=== PATIENT | female | born 1945 | race Caucasian/White ===

== ENCOUNTER → 2018-04-26 13:50 | Outpatient (CLI) | payer OTHER, SELFPAY ==
[2018-04-26 14:40] LABS: Add Manual Diff / Slide Review NO; Basophils Percent Auto 0.4 % (0-2); Eosinophils Percent Auto 2.5 % (2-4); Hematocrit 35.7 % (36-46); Hemoglobin 11.8 g/dL (12.0-16.0); Lymphocytes Percent Auto 24.5 % (25-40); Mean Corpuscular HGB Conc 33.1 % (30-36); Mean Corpuscular Hemoglobin 25.8 PG (26-34); Mean Corpuscular Volume 77.7 fL (80-100); Neutrophils Absolute Auto 4400 /uL (3000-5900); Neutrophils Percent Auto 65.6 % (50-75); Platelet Count 133 X10^3/uL (150-400); Red Cell Distribution Width 14.7 % (11.6-14.8); White Blood Cell Count 6.6 X10^3/uL (4.5-11.0)
[2018-04-26 14:54] LABS: BUN Creatinine Ratio 23.3 (6-22); Blood Urea Nitrogen 21 mg/dL (7-17); Calcium 9.1 mg/dL (8.4-10.2); Carbon Dioxide 30 mmol/L (22-32); Chloride 99 mmol/L (98-107); Estimated Glomerular Filt Rate > 60.0 mL/min (>60); Glucose 106 mg/dL (80-110); HEMOLYSIS < 15 (0-50); Potassium 4.4 mmol/L (3.4-5.1); Sodium 140 mmol/L (137-145)
== END ==
PROVIDERS: Family Provider Family Medicine; PCP Family Medicine; Visit Provider Orthopaedic Surgery
DX: Z01.818 Encounter for other preprocedural examination (principal)
CPT/HCPCS: 36415; 80048; 85025; 93005

== ENCOUNTER 2018-05-10 10:58 | Inpatient (IN) | payer OTHER, SELFPAY ==
[2018-04-28 09:53] VITALS: BMI 30.2
[2018-05-10] VITALS (14 sets, daily range): BP systolic 121–157; BP diastolic 54–76; PULSE 57–96; RESP 10–19; TEMP 36.2–37; O2SAT 91–100; BMI 30.2
--- NOTE | 2018-05-10 06:00 | DI.RAD.S_ITS ---
PROCEDURE: XR KNEE RT 1TO2V COMPARISON: None. INDICATIONS: post operative right knee FINDINGS: Normal postoperative alignment immediately after right total knee arthroplasty. IMPRESSION: Normal alignment after right total knee arthroplasty. Dictated by: Richard Fraser M.D. on 05/10/2018 at 14:37 Approved by: Richard Fraser M.D. on 05/10/2018 at 14:37
[2018-05-10] MEDS: PREGABALIN 75 MG CAPSULE PO (11:19)
[2018-05-10] MEDS: CELECOXIB 200 MG CAPSULE PO (11:19)
[2018-05-10] MEDS: ACETAMINOPHEN 325 MG TABLET 975 MG PO ×3 (11:19→20:25)
--- NOTE | 2018-05-10 11:42 | PM.PREOP ---
Pre-operative Note Interval Note Pre-op Check: Yes History & Physical Reviewed by Physician and Yes Exam Performed Changes: No
--- NOTE | 2018-05-10 11:44 | P.OP_ITS ---
Operative Date/Time/Diagnoses Date of procedure: 05/10/18 Time of procedure: 13:40 Pre-op diagnosis: Right knee osteoarthritis Post-op diagnosis: same Procedure & Clinicians Procedure: Right total knee replacement Same procedure as scheduled: Yes Indications: The patient has had progressively worsening right knee pain with radiographic changes consistent with arthritis. Non-operative management has failed and the patient has requested total knee replacement. The risks, benefits and alternatives to surgery were discussed with the patient prior to proceeding. Risks discussed included, but were not limited to, failure to relieve pain, stiffness, infection, nerve damage, deep venous thrombosis, pulmonary embolism, stroke, coma, heart attack, permanent paralysis and , as well as the potential need for eventual revision of the prosthetic. Surgeon: Lazarus Glover Evaluator Transfer Students: Nora Williamson Click Yes if Unassisted: No Anesthesia Type: Spinal, Peripheral nerve block and Local Operative Notes Findings: Severe medial and significant patellofemoral osteoarthritis. Closure Type: primary Specimen(s): none sent Implants & Drains: Implants used in this procedure were manufactured by the [id number] and included the BCS II Journey total knee replacement with a size 4 right cobalt chromium femur, size 4 right non porous tibial base plate, a 9 mm cross-linked polyethylene BCS II tibial insert, and a 35 mm oval Lexi II patellar component. Applied: implant(s) Estimated Blood Loss (mL): 25 Blood products transfused: none Tourniquet time (min): 53 Procedure in detail: The patient was seen in the pre-operative area, where the patient identified the right knee as the operative site and this was marked with my initials. The patient received pre-operative antibiotics, and was taken to the operating room and placed on the operative table in the supine position. After satisfactory anesthesia, a nail tech out was performed. The right leg was encircled with a tourniquet about the proximal thigh, and the leg was prepared from the toes to the tourniquet with ChloroPrep in the usual fashion and draped through sterile drapes. The leg was elevated and exsanguinated with Eschmark bandage and the tourniquet inflated to 250 mmHg pressure. The knee was approached through an approximately 18 cm incision centered over the patella and carried into the knee through a medial parapatellar arthrotomy. The anterior osteophytes and soft tissues were removed. The rotational landmarks of Martha's line and the transepicondylar axis were marked on the femur with electrocautery, and intramedullary guide holes for the femur and tibia were created. The distal femoral cut was made in 6 degrees of valgus using the intramedullary guide at the +2 cut setting due to a pre-existing flexion contracture. The proximal tibial cut was then made using the intramedullary guide, taking 9 mm of bone off the less involved side. The extension gap was checked and the rotation of the femoral component confirmed with the gap balancing system. The anterior, posterior and chamfer cuts were then made. The posterior osteophytes and soft tissues were then removed. The posterior capsule was injected with part of a mixture of 50 ml 0.25% Marcaine mixed with 20 ml Exparel and 4 mg of morphine for post-operative pain control. The remainder of this mixture was injected into the capsule and subcutaneous tissues during cement curing. The tibia was prepared with the rotation set by an extra medullary guide. Trial tibial and femoral components were then placed and the intercondylar notch cut through the femoral trial. Range of motion was 0-135 degrees, with good stability throughout the range. The patella was then cut to accommodate the patellar prosthetic. There was no need for a lateral release. The trials were then removed, and the femoral hole plugged with a bone plug. The bone was prepared with pulsatile lavage, and dried with a sponge. Cement was applied and the final prosthetics placed. Excess cement was removed during and after cement curing. After confirming there was no extruded cement posteriorly, the final tibial insert was placed. The knee was copiously irrigated and the tourniquet deflated. Hemostasis was obtained. The capsule was closed with interrupted # 2 polyester suture. The subcutaneous layer was closed with 3-0 Vicryl, and the skin with a running 3-0 V-Lock suture and SteriStrips. An Aquacel Ag dressing was applied and the patient was taken to recovery having tolerated the procedure well. Complications: none Condition: stable Disposition: PACU Plan for aftercare: The patient will be maintained on a standard total knee replacement protocol with weight bearing as tolerated. The patient will receive aspirin and sequential compression devices for DVT prophylaxis. The patient will be discharged home when safe for the home environment.
[2018-05-10] MEDS: MIDAZOLAM 2 MG/2 ML VIAL IV (11:54)
[2018-05-10] MEDS: fentaNYL 100 MCG/2 ML INJ 50 MCG IV (11:54)
[2018-05-10] MEDS: LACTATED RINGERS 1,000 ML 42 ML IV ×2 (12:02→12:55)
--- NOTE | 2018-05-10 12:04 | SUR.PREOP ---
Block start time [1155] . Monitoring initiated and maintained throughout procedure. Oxygen and medications given per anesthesiologist instructions. Patient remained stable throughout procedure, no adverse reactions noted. Block end time [1200 ].
[2018-05-10] MEDS: CEFAZOLIN 2 GM/100 ML FROZ.PIGGY IV ×2 (12:05→19:25)
--- NOTE | 2018-05-10 12:41 | SUR.OPER ---
Supine on padded OR bed. Pillow under head, arms secured on padded armboards <90 degree abduction. Safety belt across torso. Non-operative leg secured with tape over blanket over lower leg. Operative leg secured in DeMayo/Tonny positioner. Foam padded brace at thigh of operative leg.
[2018-05-10] MEDS: BUPIVACAINE LIPOSOME 266 MG/20 ML VIAL INJ (12:47)
[2018-05-10] MEDS: BUPIVACAINE 0.25% W/ EPI VIAL 60 ML INJ (12:48)
[2018-05-10] MEDS: MORPHINE 4 MG/ML INJ IV (12:54)
[2018-05-10] MEDS: ONDANSETRON 4 MG/2 ML INJ IV (14:20)
[2018-05-10] MEDS: OXYCODONE IR 5 MG TABLET PO ×2 (16:19→19:31)
[2018-05-10] MEDS: LACTATED RINGERS 1,000 ML 125 ML IV (16:21)
[2018-05-10] MEDS: METOCLOPRAMIDE HCL 10 MG TABLET PO ×2 (16:21→20:26)
--- NOTE | 2018-05-10 16:54 | PT.IPTN ---
Current Diagnoses Bilateral primary osteoarthritis of knee (05/10/18) Surgery Performed Operation Date: 05/10/18 13:00 Actual Procedures p Total Knee Arthroplasty(Right) - Lazarus Glover MD Physical Therapy Treatment Note M3 PT-IP Subjective Start: 05/10/18 16:51 Freq: NEEDED Status: Active Protocol: Document 05/10/18 16:51 EA (Rec: 05/10/18 16:54 EA [id number]) Subjective Physical Therapy Visit Type Type Patient Refusal Notes Patient approached @ 1650 and reports sensory impaired to 80 %. Quick assessment reveals no proprioception with lacked of light, pin prick sensation. Pt agreeable to participate with PT evaluation tomorrow.
--- NOTE | 2018-05-10 17:43 | PC.NURSE ---
patient resting comfortably in bed with call light in reach, oriented to its use, verbalizes understanding not to get oob by herself. BA active. Family at bedside. Restasis eye drops tagged and sent to pharmacy per protocol. Patient now on RA, sat is 99%. Pain is 4/10 before being medicated with pain meds, is now 2/10 during pain reassessment. Patient denies nausea, is sitting up in bed eating dinner. BLE are still mostly numb and patient reports some tingling to both calves/feet. Pulses are equal and cap refill is less than 2 seconds. SCD's on, IVF infusing as ordered. PT evaled and stated that they could not get her oob yet because her sensation hasn't fully come back yet. Will encourage patient to get oob soon to attempt to void. Will continue to monitor.
[2018-05-10] MEDS: ASPIRIN EC 81 MG TABLET PO (20:26)
[2018-05-10] MEDS: DOCUSATE 100 MG CAPSULE PO (20:26)
[2018-05-10] MEDS: MELOXICAM 7.5 MG TABLET 15 MG PO (20:26)
[2018-05-10] MEDS: RESTASIS 1 EACH EYE-BOTH (20:26)
[2018-05-10] MEDS: METOPROLOL ER 25 MG TABLET PO (20:26)
[2018-05-10] MEDS: OXYCODONE IR 10 MG TABLET PO ×2 (20:27→22:30)
[2018-05-10] MEDS: OXYCODONE ER 10 MG TAB 20 MG PO (20:27)
[2018-05-10] MEDS: SIMVASTATIN 40 MG TABLET PO (20:28)
[2018-05-11] VITALS (9 sets, daily range): BP systolic 138–159; BP diastolic 57–73; PULSE 64–72; RESP 16–66; TEMP 36.3–37.1; O2SAT 96–99
[2018-05-11] MEDS: OXYCODONE IR 10 MG TABLET PO ×5 (01:33→21:20)
[2018-05-11] MEDS: LACTATED RINGERS 1,000 ML 125 ML IV ×2 (01:38→07:46)
[2018-05-11] MEDS: METOCLOPRAMIDE HCL 10 MG TABLET PO ×4 (04:36→21:12)
[2018-05-11] MEDS: CEFAZOLIN 2 GM/100 ML FROZ.PIGGY IV (04:36)
[2018-05-11] MEDS: ONDANSETRON 4 MG/2 ML INJ IV ×2 (05:17→08:48)
[2018-05-11 05:54] LABS: Hematocrit 30.9 % (36-46); Hemoglobin 10.2 g/dL (12.0-16.0)
[2018-05-11] MEDS: LEVOTHYROXINE 88 MCG TABLET PO (06:30)
[2018-05-11] MEDS: ASPIRIN EC 81 MG TABLET PO ×2 (07:46→22:15)
[2018-05-11] MEDS: ACETAMINOPHEN 325 MG TABLET 975 MG PO ×3 (07:46→21:12)
[2018-05-11] MEDS: OXYCODONE ER 10 MG TAB 20 MG PO ×2 (07:47→21:00)
[2018-05-11] MEDS: RESTASIS 1 EACH EYE-BOTH ×2 (07:47→21:11)
--- NOTE | 2018-05-11 07:50 | PM.PNPO.1 ---
Subjective Date Patient Seen: 05/11/18 Time Patient Seen: 07:51 Interval history: The patient reports she has smoked had some issues with pain control overnight but generally she is feeling better this morning. Exam Vital Signs (past 8 hours): - 05/11/18 04:00 Temperature 98.1 F Pulse Rate 66 Respiratory Rate 16 Blood Pressure 147/57 H Pulse Oximetry 99 Oxygen Delivery Method Nasal Cannula Oxygen Flow Rate 2 Narrative Exam Narrative: Right lower extremity wound is dressed with no drainage on the bandage. Light touch and motion are intact in the right lower extremity. Calf is soft. Objective Labs Result Diagrams: 05/11/18 05:34 Labs: Laboratory Results - last 24 hr 05/11/18 05:34 Hgb 10.2 L Hct 30.9 L Radiographs reveal an appropriately positioned total knee prosthetic on the right. Assessment & Plan Post-op Postoperative Procedures Operation Date: 05/10/18 13:00 Actual Procedures Side Surgeon p Total Knee Arthroplasty Right Lazarus Glover MD Postoperative day: 1 Postoperative status: doing well, marginal pain control and anemia Postoperative status narrative: The patient is doing well postoperative day 1 after total knee replacement on the right. She has had mild pain control issues. She also has an anticipated mild post hemorrhagic anemia. Postoperative plan: routine post-op care and ambulate Time Spent With Patient less than 15 minutes Quality VTE Deep Vein Thrombosis/Pulmonary Embolism Present on Admission: No
[2018-05-11] MEDS: DOCUSATE 100 MG CAPSULE PO ×2 (08:44→21:12)
--- NOTE | 2018-05-11 09:03 | PT.IIE ---
Addendum entered and electronically signed by Imelda Redman, PT 05/11/18 13:26: I certify I directly supervised and guided this session. R Lynette Redman DPT Original Note: Current Diagnoses Bilateral primary osteoarthritis of knee (05/10/18) Surgery Performed Operation Date: 05/10/18 13:00 Actual Procedures p Total Knee Arthroplasty(Right) - Lazarus Glover MD Surgical History (Last Updated 04/29/18 @ 13:16 by Judi Humphrey RN) H/O aortic valve replacement (Acute) History of ankle surgery (Acute) Hx of appendectomy (Acute) Hx of arthroscopy of right knee (Acute) Hx of dilation and curettage (Acute) Hx of microdiscectomy (Acute) S/P CABG x 1 (Acute) Medical History (Last Updated 04/28/18 @ 10:34 by Judi Humphrey RN) Anxiety (Acute) Arthritis (Acute) Chronic back pain (Acute) Chronic neck pain (Acute) Cystocele with rectocele (Acute) Depression (Acute) Diabetes (Acute) Dry eyes (Acute) Eczema (Acute) Fecal incontinence (Acute) H/O: hysterectomy (Acute) HTN (hypertension) (Acute) Heartburn (Acute) Hyperlipidemia (Acute) Hypothyroidism (Acute) Pneumonia (Acute) Precancerous lesion (Acute) RLS (restless legs syndrome) (Acute) Sleep apnea (Acute) Supraventricular tachycardia (Acute) Physical Therapy Inpatient Evaluation/Re-Eval M1 PT/OT-IP Prior Functional Status Start: 05/10/18 16:51 Freq: NEEDED Status: Active Protocol: Document 05/11/18 09:03 (Rec: 05/11/18 11:46 [email or web address]) Medical Review Prior Functional Status Medical History Reviewed Yes Communication No deficits noted. Mobility and Gait Pt states she was previously independent with all mobilities using no AD, including driving. Social History Household Members spouse Living Arrangements House Number of Floors (Floors) One Floor Number of Stairs To Enter/Railing? 2 steps. No rail, but there is a sturdy hose-mash filter cloth changer that she can grab onto R ascending. Home Environment Standard Height Toilet Walk in Shower Home Equipment Front Wheel Walker Straight Cane Crutches Raised Toilet Seat w/Armrests Shower Seat without Backrest Hand Held Shower Employment Status Unemployed Additional Social History Comment Pt's will be avaliable 19/01 to assist pt at d/c. Pt between jobs, planning to return to work. M2 PT-IP Current Condition Start: 05/10/18 16:51 Freq: NEEDED Status: Active Protocol: Document 05/11/18 09:03 (Rec: 05/11/18 11:46 [email or web address]) Physical Therapy Current Condition Current Condition Evaluation Date 05/11/18 Treatment Diagnosis R TKA; difficulty walking Onset Date 05/10/2018 Weight Bearing Status Weight Bearing Status Weight Bear as Tolerated M3 PT-IP Subjective Start: 05/10/18 16:51 Freq: NEEDED Status: Active Protocol: Document 05/11/18 09:03 (Rec: 05/11/18 11:46 [email or web address]) Subjective Physical Therapy Visit Type Type Initial Evaluation Visit Start Time 09:03 Visit Stop Time 09:57 Total Visit Minutes 54 Number of CREATIVE DESIGNER Visits 0 Physical Therapy Visit Comments Patient Comments Pt agreeable to mobilize with PT. Patient Goals Pt planning to d/c home with . Therapy Pain Assessment Pain When Pain Assessed During Mobility Pain Present Pain Present Pain Reported Location Right Knee Scale Used 6/10 resting. Decreases to 4/ 10 after ambulation Pain Behaviors Facial Grimacing Guarding Pain Management Techniques Apply Cold Distraction Elevation Modification of Treatment Re-positioning Timing of Activity with Medications M4 PT-IP Mobility and Gait Start: 05/10/18 16:51 Freq: NEEDED Status: Active Protocol: Document 05/11/18 09:03 (Rec: 05/11/18 11:46 [email or web address]) PT-Bed Mobility Assessment Supine to Sit Supine to Sit Standby Assistance Scooting Scooting to Edge of Bed Standby Assistance PT-Transfer Assessment Sit to and From Stand Sit to and from Stand Contact Guard Assistance Use of Upper Extremities Equipment Transfer Assistive Device Gait Belt Front Wheeled Walker Orthotic/Prosthetic Devices or Brace: No Transfers Transfer Destination Bed Chair Transfer Technique Ambulating between surfaces. Comments Mobility Comments Resting/HOB elevated VSS WNL. Supine > sit is SBA. Sit <> stand from high bed is CGA using BUEs and mod cues to avoid pushing from walker. Pt c/o of some lightheadedness with standing, VSS remain WNL, symptoms decrease and pt agrees to ambulate. After ambulation (see below) sit <> stand from toilet is CGA and pt uses R grab bar. Gait Assessment Gait Gait Assistance Required: Contact Guard Assist Distance (Feet) 100 Able to Maintain Weight Bearing Status Yes During Gait Assistive Devices Assistive Device Gait Belt Front Wheeled Walker Orthotic/Prosthetic Devices or Brace: No Gait Deviations General Gait Pattern Decreased Stride Length Decreased Feet Clearance Flexed Trunk Factors Limiting Gait Function Factors Limiting Gait Function Decreased Activity Tolerance Decreased Strength Limited Range of Motion Pain Poor Balance Poor Safety Awareness Comments Gait Comments Pt ambulates 100 + 15+ 15 ft using fww CGA. Demonstrates forward posture she corrects with min cues. Pt relies heavily on fww to offload R LE . Pt tends avoid flexing R knee during gait, but is able to partially correct this with mod cues. PT-Balance Assessment Sitting Balance and Reactions Static Sitting Balance Ability Good Dynamic Sitting Balance Ability Good Standing Balance and Reactions Static Standing Balance Ability Good Dynamic Standing Balance Ability Fair Device Used fww M5 PT-IP Objective Assessments Start: 05/10/18 16:51 Freq: NEEDED Status: Active Protocol: Document 05/11/18 09:03 (Rec: 05/11/18 11:46 [email or web address]) Orientation Orientation/Cognition Level of Alertness Alert Orientation Name Age Birthday Month Date Year Day of Week Place Situation Language Function Ability No Deficits Noted Safety Awareness Decreased Safety Awareness Gross Range of Motion Lower Extremity ROM Assessment Right Impaired Impairments R knee flexion ~40deg; extension +5 deg. LLE WNL. Strength Lower Extremity Strength Assessment Right Impaired Hip 5 Knee 3 Ankle 5 Comments Strength Comments LLE WNL M6 PT-IP Treatment Start: 05/10/18 16:51 Freq: NEEDED Status: Active Protocol: Document 05/11/18 09:03 (Rec: 05/11/18 11:46 [email or web address]) Physical Therapy Treatment Exercises Exercises Ankle Pumps Quad Sets Heel Slides Straight Leg Raises Short Arc Quads Passive Knee Extension Hang Seated Knee Flexion/Extension Education Education Provided Precautions Weight Bearing Status Post-Op Packet Safety M7 PT-IP Assessment and Plan Start: 05/10/18 16:51 Freq: NEEDED Status: Active Protocol: Document 05/11/18 09:03 (Rec: 05/11/18 11:46 [email or web address]) PT Summary Assessment and Plan Potential Rehabilitation Potential Good Status of Condition at Evaluation Stable Summary Impairments Pain ROM Strength Balance Bed Mobility Transfers Gait Activity Tolerance Progress Towards Goals Progressing Toward Goals Assessment Summary Pt s/p R TKA with difficulty walking. She was able to walk 100 ft with fww CGA. Stair climbing still needs to be completed. Recommend d/c to home with 24/7 assist and f/u OP PT once pt completes stair climbing with PT and is medically stable. Goals Bed Mobility Goal Independent Transfer Goal Standby Assistance Gait Goal Standby Assistance Gait Distance 200 Other Goals up/down 2 stairs with R rail ( pt has a hose-mash filter cloth changer to grab onto R ascending) CGA. Days to Meet Goals 3 Frequency of Treatment Frequency Of Treatment Twice a Day Treatment Plan Physical Therapy Treatment Plan Bed Mobility Training Transfer Training Gait Training Therapeutic Exercise Balance Retraining Post Op Education Discharge Planning Hot or Cold Pack Neuromuscular Re-ed Coordination Retraining Manual Therapy Other Recommendations and Next Treatment Stair climbing. Ambulation. Focus Recommendations To Nursing Amount of Assist Needed 1 Person Assist Discharge Recommendations PT Discharge Recommendations Home with 24/7 Assist Outpatient PT
--- NOTE | 2018-05-11 10:46 | PC.NURSE ---
Addendum entered by Zeina Enriquez R.N. 05/11/18 13:18: Good PO intake despite intermittent nausea. No emesis. Voiding WNL. IV saline locked per standing post op orders. Original Note: Addendum entered by Zeina Enriquez R.N. 05/11/18 13:08: Reports good pain relief after getting the IV Dilaudid (down to 3/10 from 7). Nausea improved also. Original Note: Addendum entered by Zeina Enriquez R.N. 05/11/18 12:02: C/O nausea increasing again. Will see if she wants to try Vistaril. Reports pain in R knee consistently 01/05. Plan to give IV Dilaudid that she has ordered for breakthrough pain. Original Note: Shift summary: Alert and oriented X3. Doing well with transfers and walking, 1-person assist with FWW. Guero wrap and dressing to R knee C/D/I. Circulation/sensation WNL all extremities, denies paresthesias. Medicated with 10 mg Oxycodone and schedule Oxycontin for 710 R knee pain. Fresh ice packs applied to R knee. Has mild nausea, no emesis. Was able to eat all of her breakfast. She reports that intermittent nausea is something she deals with at home also. Medicated with PRN Zofran and scheduled Reglan with reports of nausea reduction. Lungs CTA, HRR. Encouraged ongoing coughing, deep breathing and IS use. 1+ pitting edema RLE. BT+, flatus+, had a BM this morning. IVF per orders, site in R hand WNL. Back in bed after working with PT. Call light in reach, bed alarm on.
[2018-05-11] MEDS: hydrOXYzine pamoate 25 MG CAPSULE PO ×2 (12:07→19:27)
[2018-05-11] MEDS: HYDROMORPHONE 0.5 MG INJ IV ×6 (12:08→22:17)
[2018-05-11] MEDS: SODIUM CHLORIDE 0.9% FLUSH 10 ML IV ×3 (14:01→22:18)
--- NOTE | 2018-05-11 14:51 | PT.IPTN ---
Current Diagnoses Bilateral primary osteoarthritis of knee (05/10/18) Surgery Performed Operation Date: 05/10/18 13:00 Actual Procedures p Total Knee Arthroplasty(Right) - Lazarus Glover MD Physical Therapy Treatment Note M2 PT-IP Current Condition Start: 05/10/18 16:51 Freq: NEEDED Status: Active Protocol: Document 05/11/18 09:03 (Rec: 05/11/18 11:46 [email or web address]) Physical Therapy Current Condition Current Condition Evaluation Date 05/11/18 Treatment Diagnosis R TKA; difficulty walking Onset Date 05/10/2018 Weight Bearing Status Weight Bearing Status Weight Bear as Tolerated M3 PT-IP Subjective Start: 05/10/18 16:51 Freq: NEEDED Status: Active Protocol: Document 05/11/18 13:35 CLB (Rec: 05/11/18 14:51 CLB [email or web address]) Subjective Physical Therapy Visit Type Type Treatment Note Visit Start Time 13:35 Visit Stop Time 14:05 Total Visit Minutes 30 Number of WOOL WASHER Visits 1 Physical Therapy Visit Comments Patient Comments Pt agreeable to do therapy. Patient Goals Pt planning to d/c home with . Therapy Pain Assessment Pain When Pain Assessed During Mobility Pain Present Pain Present Pain Reported Location Right Knee Intensity 9 Scale Used Numeric (1 - 10) Pain Management Techniques Apply Cold Distraction Elevation Modification of Treatment Re-positioning Timing of Activity with Medications M4 PT-IP Mobility and Gait Start: 05/10/18 16:51 Freq: NEEDED Status: Active Protocol: Document 05/11/18 13:35 CLB (Rec: 05/11/18 14:51 CLB [id number]) PT-Bed Mobility Assessment Supine to Sit Supine to Sit Standby Assistance Head of Bed Elevated Sit to Supine Sit to Supine Minimal Assistance Head of Bed Elevated Scooting Scooting to Edge of Bed Standby Assistance Scooting Up and Down in Bed Standby Assistance PT-Transfer Assessment Sit to and From Stand Sit to and from Stand Contact Guard Assistance Use of Upper Extremities Equipment Transfer Assistive Device Gait Belt Front Wheeled Walker Orthotic/Prosthetic Devices or Brace: No Transfers Transfer Destination Bed Chair Toilet Comments Mobility Comments Pt able to use GC to self assist RLE OOB. Gait Assessment Gait Gait Assistance Required: Contact Guard Assist Distance (Feet) 40 Assistive Devices Assistive Device Gait Belt Front Wheeled Walker Orthotic/Prosthetic Devices or Brace: No Gait Deviations General Gait Pattern Decreased Stride Length Decreased Feet Clearance Flexed Trunk Factors Limiting Gait Function Factors Limiting Gait Function Decreased Activity Tolerance Decreased Strength Limited Range of Motion Pain Poor Balance Poor Safety Awareness Comments Gait Comments Pt ambulated to BR ~10ft then ambulated in room ~30 before pt felt pn had increased and she needed to rest. Pt prefers to wear shoes with ambulation due to L ankle discomfort. M5 PT-IP Objective Assessments Start: 05/10/18 16:51 Freq: NEEDED Status: Active Protocol: Document 05/11/18 09:03 (Rec: 05/11/18 11:46 [email or web address]) Orientation Orientation/Cognition Level of Alertness Alert Orientation Name Age Birthday Month Date Year Day of Week Place Situation Language Function Ability No Deficits Noted Safety Awareness Decreased Safety Awareness Gross Range of Motion Lower Extremity ROM Assessment Right Impaired Impairments R knee flexion ~40deg; extension +5 deg. LLE WNL. Strength Lower Extremity Strength Assessment Right Impaired Hip 5 Knee 3 Ankle 5 Comments Strength Comments LLE WNL M6 PT-IP Treatment Start: 05/10/18 16:51 Freq: NEEDED Status: Active Protocol: Document 05/11/18 13:35 CLB (Rec: 05/11/18 14:51 CLB [id number]) Physical Therapy Treatment Exercises Exercises Ankle Pumps Quad Sets Heel Slides Straight Leg Raises Short Arc Quads Education Education Provided Precautions Weight Bearing Status Post-Op Packet Safety Other Treatments Other Treatment Performed Demonstrated to pt how to use GB to self assist with RLE. M7 PT-IP Assessment and Plan Start: 05/10/18 16:51 Freq: NEEDED Status: Active Protocol: Document 05/11/18 13:35 CLB (Rec: 05/11/18 14:51 CLB [id number]) PT Summary Assessment and Plan Potential Rehabilitation Potential Good Status of Condition at Evaluation Stable Summary Impairments Pain ROM Strength Balance Bed Mobility Transfers Gait Activity Tolerance Progress Towards Goals Progressing Toward Goals Assessment Summary Pt able to perform all ther ex . Pt is SBA OOB with use of GB to assist RLE but due to increase of pain after ambultion pt required Min A for RLE sit-supine. Pt will need to performs stair climbing with before d /c ( will be back in AM typically around 8:00) Goals Bed Mobility Goal Independent Transfer Goal Standby Assistance Gait Distance 200 Other Goals up/down 2 stairs with R rail ( pt has a hose-bladder changer to grab onto R ascending) CGA. Days to Meet Goals 3 Treatment Plan Physical Therapy Treatment Plan Bed Mobility Training Transfer Training Gait Training Therapeutic Exercise Balance Retraining Post Op Education Discharge Planning Hot or Cold Pack Neuromuscular Re-ed Coordination Retraining Manual Therapy Other Recommendations and Next Treatment Stair climbing. Ambulation. Focus Recommendations To Nursing Amount of Assist Needed 1 Person Assist Discharge Recommendations PT Discharge Recommendations Home with 19/01 Assist Outpatient PT
[2018-05-11] MEDS: OXYCODONE IR 5 MG TABLET PO (17:02)
[2018-05-11] MEDS: MELOXICAM 7.5 MG TABLET 15 MG PO (21:12)
[2018-05-11] MEDS: METOPROLOL ER 25 MG TABLET PO (21:12)
[2018-05-11] MEDS: SIMVASTATIN 40 MG TABLET PO (21:12)
[2018-05-11] MEDS: PANTOPRAZOLE 40 MG TABLET PO (21:14)
--- NOTE | 2018-05-11 23:58 | PC.NURSE ---
Nida reports right knee still really hurting--it is a sharp pain. We have kept ice packs on knee off & on tonight. Pt taking 2 oxycodone routinely every 3-4 hours but requesting IV Dilaudid for breakthru pain approx every 1.5-2 hours. At 2100 she asked for my pain meds. Discussed how PO oxycodone & oxycontin were both due, she stated she wanted the Dilaudid too--that's the only thing that takes my pain away. She then rated her pain at about a 5. When giving her medications, she fell asleep during conversation 2-3 times. RA oxygen 92-95% and BP 153/73. HR 69 bpm and regular. She awoke to loud voice, we talked about pain medication & I told her how I was afraid to over-sedate her, and discussed her falling asleep during conversation. I then asked if she wanted me to hold the IV Dilaudid or give it she said you are giving me mixed messages! First you tell me you will give it to me and then you won't. Everyone wants me to stay on top of my pain but when I ask for pain medication you make me feel like I am taking too much. I talked with her tonight about her sedation, the oxycodone & oxycontin I had just given to her. I told her I did not want to withhold her medication and I asked her to make the decision whether she wanted to take the IV Dilaudid. She said well no--just don't give it then I instructed her to call me if she had increased pain & that I would immediately come in room to give her the IV Dilaudid for breakthru pain, as it is ordered. We discussed how DC plan will not include IV medications and how our goal is to manage pain with oral meds. Within 20 minutes, Dawn golf shoe spike assembler notified me that patient had called, that patient was found was crying and told her that she needed her Dilaudid and did not know why the nurse was not giving it to her. I went into room immediately, she rated pain 9/10, I then administered IV Dilaudid 0.5 mg. Pt instructed to call for any needs or concerns. She asked is it OK that I get up by myself to use the bathroom tonight? Fall precautions reviewed with her, she was instructed again to call and have staff present before she attempts to get OOB. Full patient report given to Ivette HEATH RN.
[2018-05-12] MEDS: OXYCODONE IR 5 MG TABLET PO (03:13)
[2018-05-12 03:30] VITALS: BP 177/72; PULSE 61; RESP 18; TEMP 36.8; O2SAT 97
[2018-05-12] MEDS: OXYCODONE IR 10 MG TABLET PO ×2 (06:05→08:56)
[2018-05-12 07:40] VITALS: BP 160/63; PULSE 70; RESP 16; TEMP 37; O2SAT 97
--- NOTE | 2018-05-12 07:44 | P.DS_ITS ---
History of Present Illness Date Patient Seen: 05/12/18 Time Patient Seen: 07:39 Chief complaint: total knee arthroplasty right [id number] Narrative: Patient has a history of right knee osteoarthritis. She failed conservative measures elected to proceed with right total knee arthroplasty with Dr. Glover at [facility]. Discharge Providers Date of admission: 05/10/18 10:58 Primary care physician: Timbo Blair MD Consults: 05/10/18 14:52 Consult to Discharge Planning Routine Comment: Consult to Physical Therapy Evaluate & Treat Comment: Physician Instructions: postop TKA protocol Consult to Respiratory Therapy Evaluate & Treat Comment: Physician Instructions: Evaluate and treat Discharge provider: Marina Beavers PA-C Discharge Date: 05/12/18 Summary Discharge Diagnosis: Right knee osteoarthritis Mild postoperative anemia Hospital Course: Patient was admitted and taken operating room she had a right total knee replacement with Dr. Glover. She recovered well as transfer to the floor for further care. Postop day 1 she was having issues with pain control. Postop day 2 patient was ambulating well, pain was under control, eating and drinking well, and urinating without difficulty. She was ready to be discharged home. She will be discharged home with prescriptions for oxycodone 5 mg and Vistaril 25 mg. Status at Discharge Cognitive/behavioral status at discharge: Alert and orient x3 Functional status at discharge: uses cane/walker Overall status at discharge: patient is progressing back to baseline Time Spent with Patient Less than 30 minutes Exam Vital Signs (past 8 hours): - 05/11/18 23:50 05/12/18 03:30 Temperature 98.8 F 98.3 F Pulse Rate 69 61 Respiratory Rate 18 18 Blood Pressure 143/67 H 177/72 H Pulse Oximetry 96 97 Oxygen Delivery Method Room Air Oxygen Flow Rate 0 Narrative Exam Narrative: Patient in bed. Appears comfortable. Alert orient x3. Right knee Aquacel dressing clean dry and intact. Moderate swelling in right knee. Bilateral calves soft and nontender. 5/5 right ankle strength. Neurovascular status intact. Objective Labs Result Diagrams: 05/11/18 05:34 Discharge Plan Discharge Plan Patient Disposition: Home Discharge comment: Start physical therapy next week. Take aspirin 81 mg twice a day x6 weeks for DVT prophylaxis. Discharge Med Rec/Prescriptions Prescriptions: New acetaminophen 325 mg Tablet 975 mg PO TID Qty: 0 RF: 0 aspirin 81 mg Tablet,Delayed Release (Dr/Ec) 81 mg PO BID Qty: 0 RF: 0 hydroxyzine pamoate 25 mg Capsule 25 mg PO Q6HR PRN (Reason: Nausea) Qty: 42 RF: 0 oxycodone 10 mg Tablet 10 mg PO Q3HR PRN (Reason: Pain, Severe (7-10)) Qty: 60 RF: 0 Continue simvastatin 40 mg Tablet 40 mg PO BEDTIME RF: 0 pantoprazole [Protonix] 40 mg Tablet,Delayed Release (Dr/Ec) 40 mg PO DAILY PRN (Reason: gi upset) RF: 0 metoprolol succinate 25 mg Tablet Extended Release 24 Hr 25 mg PO BEDTIME RF: 0 cyclosporine [Restasis] 0.05 % Dropperette 1 drp EYE-BOTH BID RF: 0 levothyroxine 88 mcg Capsule 88 mcg PO DAILY RF: 0 aspirin 81 mg Tablet,Delayed Release (Dr/Ec) 81 mg PO DAILY RF: 0 metoclopramide HCl [Reglan] 10 mg Tablet 10 mg PO Q6H RF: 0 Changed meloxicam 15 mg Tablet 15 mg PO DAILY Qty: 0 RF: 0 Discontinued oxycodone-acetaminophen 10-325 mg Tablet 1 - 2 tab PO QID PRN (Reason: pain) RF: 0 Follow up/Referrals: Lzaarus Glover MD [Physician] - (Follow-up as scheduled date and time. Contact office with any issues or concerns.) Provider Discharge Instructions Diet: Diet as Tolerated Cold/Heat Therapy: Apply ice as needed for swelling and inflammation. Skin/Wound/Dressing Care Report to your healthcare provider any signs of infection, such as:: chills, fever, increased pain and unusual drainage Dressing: Keep dressing clean dry and intact. May shower. Visit Report/Discharge Packet Instructions: DI for Knee Replacement Discharge Data Primary Care Provider: Timbo Blair Attending Provider: Lazarus Glover Admit Date/Time: 05/10/18 10:58 Quality VTE Deep Vein Thrombosis/Pulmonary Embolism Present on Admission: No
--- NOTE | 2018-05-12 08:35 | PC.NURSE ---
pt angry about lack of pain medication. pt states, I'm a chronic pain patient and medication has been cut down. My knee is in excoriating pain. pt will take oxycodone 10mg at 0900. right knee swollen. drsg intact. This RN explained Tylenol dose lowered per discharge orders but oxycodone dose increased. pt seems 'ok' with this.
[2018-05-12] MEDS: LEVOTHYROXINE 88 MCG TABLET PO (08:55)
[2018-05-12] MEDS: ACETAMINOPHEN 325 MG TABLET 975 MG PO (08:56)
[2018-05-12] MEDS: METOCLOPRAMIDE HCL 10 MG TABLET PO (08:57)
[2018-05-12] MEDS: ASPIRIN EC 81 MG TABLET PO (08:57)
[2018-05-12] MEDS: DOCUSATE 100 MG CAPSULE PO (08:58)
--- NOTE | 2018-05-12 10:39 | PT.IPTN ---
Current Diagnoses Bilateral primary osteoarthritis of knee (05/10/18) Surgery Performed Operation Date: 05/10/18 13:00 Actual Procedures p Total Knee Arthroplasty(Right) - Lazarus Glover MD Physical Therapy Treatment Note M2 PT-IP Current Condition Start: 05/10/18 16:51 Freq: NEEDED Status: Active Protocol: Document 05/11/18 09:03 (Rec: 05/11/18 11:46 [email or web address]) Physical Therapy Current Condition Current Condition Evaluation Date 05/11/18 Treatment Diagnosis R TKA; difficulty walking Onset Date 05/10/2018 Weight Bearing Status Weight Bearing Status Weight Bear as Tolerated M3 PT-IP Subjective Start: 05/10/18 16:51 Freq: NEEDED Status: Active Protocol: Document 05/12/18 10:28 SA (Rec: 05/12/18 10:39 SA [id number]) Subjective Physical Therapy Visit Type Type Treatment Note Visit Start Time 08:55 Visit Stop Time 09:25 Total Visit Minutes 30 Number of VP ACCOUNT DIRECTOR Visits 2 Physical Therapy Visit Comments Patient Comments Pt sitting up at EOB and agreeable to PT this AM. Patient Goals Planning to d/c home with later today. Therapy Pain Assessment Pain When Pain Assessed During Mobility Pain Present Pain Present Pain Reported Location Right Knee Intensity 5 Scale Used Carson-Hopson (Faces) Pain Management Techniques Apply Cold Re-positioning Timing of Activity with Medications M4 PT-IP Mobility and Gait Start: 05/10/18 16:51 Freq: NEEDED Status: Active Protocol: Document 05/12/18 10:28 SA (Rec: 05/12/18 10:39 SA [email or web address]) PT-Bed Mobility Assessment Sit to Supine Sit to Supine Standby Assistance Bedrails Scooting Scooting to Edge of Bed Standby Assistance Scooting Up and Down in Bed Standby Assistance PT-Transfer Assessment Sit to and From Stand Sit to and from Stand Standby Assistance Equipment Transfer Assistive Device Gait Belt Front Wheeled Walker Orthotic/Prosthetic Devices or Brace: No Transfers Transfer Destination Bed Chair Transfer Technique Stand Step Pivot Transfer Ability Level of Assist Contact Guard Assistance Comments Mobility Comments Pt able to cross L LE under R leg to assist with clearing leg over EOB for sit to supine . Gait Assessment Gait Gait Assistance Required: Contact Guard Assist Distance (Feet) 75 Assistive Devices Assistive Device Gait Belt Front Wheeled Walker Orthotic/Prosthetic Devices or Brace: No Gait Deviations General Gait Pattern Decreased Stride Length Decreased Feet Clearance Flexed Trunk Factors Limiting Gait Function Factors Limiting Gait Function Decreased Activity Tolerance Decreased Strength Limited Range of Motion Pain Poor Balance Poor Safety Awareness Comments Gait Comments Gait training in room and olivares with CGA and Mod cues for increasing WBing through RLE and safe use of FWW. 40 + 35 feet with rest break between. Stair Climbing Assessment Evaluation Level of Assist On Stairs Contact Guard Assistance Devices Stair Climbing Assistive Devices Left Railing Right Railing Technique/Endurance Stair Climbing Direction Ascend and Descend Stair Climbing Technique Step to Step Number of Steps Climbed 3 Query Text: Stair Climbing Set # Repetitions (reps) 2 Comments Stair Climbing Comments Education for safe stair climb technique. Hand out provided for patient to reference. M5 PT-IP Objective Assessments Start: 05/10/18 16:51 Freq: NEEDED Status: Active Protocol: Document 05/11/18 09:03 (Rec: 05/11/18 11:46 [email or web address]) Orientation Orientation/Cognition Level of Alertness Alert Orientation Name Age Birthday Month Date Year Day of Week Place Situation Language Function Ability No Deficits Noted Safety Awareness Decreased Safety Awareness Gross Range of Motion Lower Extremity ROM Assessment Right Impaired Impairments R knee flexion ~40deg; extension +5 deg. LLE WNL. Strength Lower Extremity Strength Assessment Right Impaired Hip 5 Knee 3 Ankle 5 Comments Strength Comments LLE WNL M6 PT-IP Treatment Start: 05/10/18 16:51 Freq: NEEDED Status: Active Protocol: Document 05/12/18 10:28 SA (Rec: 05/12/18 10:39 [email or web address]) Physical Therapy Treatment Exercises Exercises Ankle Pumps Quad Sets Heel Slides Straight Leg Raises Short Arc Quads Education Education Provided Post-Op Packet Safety M7 PT-IP Assessment and Plan Start: 05/10/18 16:51 Freq: NEEDED Status: Active Protocol: Document 05/12/18 10:28 SA (Rec: 05/12/18 10:39 [email or web address]) PT Summary Assessment and Plan Potential Rehabilitation Potential Good Status of Condition at Evaluation Stable Frequency of Treatment Frequency Of Treatment Twice a Day Recommendations To Nursing Amount of Assist Needed 1 Person Assist Discharge Recommendations PT Discharge Recommendations Home with 24/7 Assist Outpatient PT Equipment Needed for Home Before Pt has FWW and equipment Discharge needed.
--- NOTE | 2018-05-12 11:45 | CM.DPC ---
DCP/ Patient to discharge home today. Met with patient: patient agreeable to discharge. Spouse is in route to transport patient home. Plan: Discharge home today with supportive spouse.
== END 2018-05-12 12:00 | disposition home or self-care (01) | DRG 470 ==
PROVIDERS: Admitting Provider Orthopaedic Surgery; Family Provider Family Medicine; PCP Family Medicine; Visit Provider Orthopaedic Surgery
PROC: 0SRC0JZ Replacement of Right Knee Joint with Synthetic Substitute, Open Approach (ICD-10-PCS; CPT 27447; principal; 2018-05-10 13:00)
DX: M17.11 Unilateral primary osteoarthritis, right knee (principal); G89.29 Other chronic pain; D46.9 Myelodysplastic syndrome, unspecified; I10 Essential (primary) hypertension; E78.5 Hyperlipidemia, unspecified; K21.9 Gastro-esophageal reflux disease without esophagitis; M79.7 Fibromyalgia; Z87.891 Personal history of nicotine dependence
CPT/HCPCS: 36415; 64450; 73560; 85014; 85018; 97110; 97116; 97161; 97530; C1776; C9290; J0690; J1170; J2250; J2270; J2405; J2704; J3010

== ENCOUNTER → 2022-05-06 11:13 | Outpatient (CLI) | payer OTHER, SELFPAY ==
[2018-05-10 11:27] VITALS: BMI 30.2
== END ==
PROVIDERS: Family Provider Family Medicine; PCP Internal Medicine; Referring Provider Internal Medicine; Visit Provider Internal Medicine